=== PATIENT | male | born 1980 | race Caucasian/White ===

== ENCOUNTER 2018-10-06 11:13 | Emergency (ER) | payer BC ==
[2018-10-06 11:20] VITALS: BP 162/98; PULSE 102; RESP 18; TEMP 97.6
[2018-10-06] MEDS ORDERED: IBUPROFEN 600 MG TAB PO STA (11:33)
--- NOTE | 2018-10-06 12:02 | ED ---
General Adult HPI - General Chief complaint: Extremity Injury, Upper Stated complaint: lt wrist injury Time Seen by Provider: 10/06/18 11:26 Source: patient, RN notes reviewed, old records reviewed Mode of arrival: ambulatory Limitations: no limitations - History of Present Illness Initial comments: 38-year-old male with left wrist injury. Patient is left-hand dominant. Patient states was getting into his truck, slipped trapping his left hand and wrist between his car seat and center console. He had significant pain at site of injury. There was no head neck or back trauma. Patient has no other injuries noted. No chronic medical problems. Denies numbness or tingling in the hand. Pain is located to the left wrist. - Related Data Previous Rx's Medication Instructions Recorded HYDROcodone/APAP 5-325MG [[place] 1 tab PO Q6HR PRN #12 tab 10/06/18 5-325] Ibuprofen [Motrin] 600 mg PO Q8HR PRN #24 tab 10/06/18 Allergies Allergy/AdvReac Type Severity Reaction Status Date / Time Penicillins Allergy Unknown Verified 10/06/18 12:11 Review of Systems ROS Statement: Those systems with pertinent positive or pertinent negative responses have been documented in the HPI. ROS Other: All systems not noted in ROS Statement are negative. Past Medical History Past Medical History: No Reported History History of Any Multi-Drug Resistant Organisms: None Reported Past Surgical History: No Surgical Hx Reported Past Psychological History: No Psychological Hx Reported Smoking Status: Current every day smoker Past Alcohol Use History: Daily Past Drug Use History: None Reported General Exam Limitations: no limitations General appearance: alert, in no apparent distress Head exam: Present: atraumatic, normocephalic Eye exam: Present: normal appearance, PERRL ENT exam: Present: normal exam Neck exam: Present: normal inspection. Absent: tenderness Respiratory exam: Present: normal lung sounds bilaterally. Absent: respiratory distress Cardiovascular Exam: Present: regular rate, normal rhythm GI/Abdominal exam: Present: soft. Absent: distended, tenderness Extremities exam: Present: other (Left upper shoulder, normal range of motion at the shoulder, normal range of motion at the elbow, no bony tenderness noted until the distal left forearm. Tenderness along both the radius and the ulna, there is soft tissue swelling and ecchymosis. Range of motion of the wrist limited secondary to pain. Patient has normal cap refill, 2+ radial pulse, sensation.) Course Vital Signs 10/06/18 11:17 Temperature 97.6 F Pulse Rate 102 H Respiratory 18 Rate Blood Pressure 162/98 O2 Sat by Pulse 99 Oximetry Procedures - Orthopedic Splinting/Casting Injury #1 Side: left Upper Extremity Injury Location: wrist Upper Extremity Immobilizer: sugar tong splint Additional Comments: Patient neurovascularly intact both pre-and post-splinting Medical Decision Making - Medical Decision Making 38-year-old male left wrist injury. X-ray obtained, shows nondisplaced fracture of the distal radius with 1.5 mm articular step-off. Patient is neurovascularly intact. He is given Motrin and morphine for pain. He is placed in a sugar tong splint. He is given orthopedic follow-up. Disposition Clinical Impression: Distal radius fracture, left Disposition: HOME SELF-CARE Condition: Good Instructions (If sedation given, give patient instructions): Wrist Fracture in Adults (ED) Prescriptions: HYDROcodone/APAP 5-325MG [[place] 5-325] 1 tab PO Q6HR PRN #12 tab PRN Reason: Pain Ibuprofen [Motrin] 600 mg PO Q8HR PRN #24 tab PRN Reason: Pain Is patient prescribed a controlled substance at d/c from ED?: No Referrals: None,Stated [Primary Care Provider] - 1-2 days Indra Thomas DO [Medical Doctor] - 1-2 days Time of Disposition: 12:51
--- NOTE | 2018-10-06 12:26 | XR ---
EXAMINATION TYPE: XR wrist complete LT DATE OF EXAM: 10/06/2018 COMPARISON: NONE HISTORY: 38-year-old male slipped, fall, pain TECHNIQUE: 4 views FINDINGS: Prominent soft tissue swelling about the wrist and distal forearm. Subtle lucency seen along the ulna r-sided lip of the distal radial epiphysis. Lucency extends to the ulnar margin of the radiocarpal minnie int with step-off measuring 1.5 mm. This is seen on both AP and oblique views. The distal radioulnar joint and midcarpal compartment appear intact. IMPRESSION: Nondisplaced fracture along the ulnar margin of the distal radial epiphysis with intra-articular exte nsion into the radiocarpal joint resulting in 1.5 mm of articular surface step-off.
[2018-10-06] MEDS ORDERED: MORPHINE SULFATE 4 MG/ML SYRINGE IM STA (12:56)
== END 2018-10-06 13:09 | disposition home or self-care (01) ==
LOC: EC 11:13
DX: S52.502A Unspecified fracture of the lower end of left radius, initial encounter for closed fracture (principal); S60.212A Contusion of left wrist, initial encounter; F17.200 Nicotine dependence, unspecified, uncomplicated; Z88.0 Allergy status to penicillin; W00.0XXA Fall on same level due to ice and snow, initial encounter; Y93.89 Activity, other specified; Y92.89 Other specified places as the place of occurrence of the external cause
CPT/HCPCS: 29125; 96372; 99284

== ENCOUNTER → 2020-07-19 | Outpatient (CLI) | payer BC ==
--- NOTE | 2020-07-19 12:23 | P.STRESS ---
- Stress Test Note Stress Test Results/Findings: Exam Performed: stress test Exam Date: 07/19/20 Reason for Exam: CP/SOB Height: 5 ft 6 in Weight: 74.843 kg Protocol: JULITA Stage: 3 Duration of Exercise: 7:15 Resting Heart Rate: 117 Resting Blood Pressure: 170/98 Maximum Achieved Heart Rate: 176 Maximum Achieved Blood Pressure: 197/98 85% PMHR: 153 100% PMHR: 180 METS: 8.7 Technologist Comment: Stress Test Results/Findings: Baseline heart rate 117 beats a minute, Baseline blood pressure 171 98 mmHg Patient exercised on a Julita protocol for 7 minutes 15 seconds achieving a peak heart rate of 173 beats a minute. Elevated blood pressure at baseline Patient was short of breath. PVCs were noted There was no procedures for ischemia No sustained or nonsustained arrhythmias noted Impression Averaging exercise capacity without ECG ms for ischemia Occasional PVCs
== END | disposition home or self-care (01) ==
LOC: RADNMMAIN 10:54
PROVIDERS: ATTEND Family Medicine
DX: I49.9 Cardiac arrhythmia, unspecified (principal)
CPT/HCPCS: 93017

== ENCOUNTER 2020-10-29 21:10 | Emergency (ER) | payer BC ==
[2020-10-29 21:13] VITALS: RESP 18
--- NOTE | 2020-10-29 22:01 | XR ---
EXAMINATION TYPE: XR elbow complete LT DATE OF EXAM: 10/29/2020 CLINICAL HISTORY: Pain status post fall. TECHNIQUE: Frontal, lateral and oblique images of the left elbow are obtained. COMPARISON: None FINDINGS: There is no acute fracture/dislocation evident in the left elbow. No abnormal fat pad sig ns are seen. The overlying soft tissue appears unremarkable. IMPRESSION: There is no acute fracture or dislocation in the left elbow.
--- NOTE | 2020-10-29 22:11 | ED ---
Fall HPI - General Chief Complaint: Fall Stated Complaint: Fall,Lft elbow injury Time Seen by Provider: 10/29/20 21:21 Source: patient Mode of arrival: ambulatory - History of Present Illness Initial Comments: Ilya is a 40-year-old male presents the ER today for evaluation of left elbow pain. Patient reports that he lost his balance falling backwards onto his left elbow. He felt like it looked different from his right elbow so he came in with concern that the bones may be out of place. Patient reports he has full range of motion of the elbow with minimal pain but feels like it looks different when he flexes the joint. - Related Data Previous Rx's Medication Instructions Recorded HYDROcodone/APAP 5-325MG [[place] 1 tab PO Q6HR PRN #12 tab 10/06/18 5-325] Ibuprofen [Motrin] 600 mg PO Q8HR PRN #24 tab 10/06/18 Allergies Allergy/AdvReac Type Severity Reaction Status Date / Time Penicillins Allergy Unknown Verified 10/29/20 21:13 Review of Systems ROS Statement: Those systems with pertinent positive or pertinent negative responses have been documented in the HPI. ROS Other: All systems not noted in ROS Statement are negative. Past Medical History Past Medical History: No Reported History History of Any Multi-Drug Resistant Organisms: None Reported Past Surgical History: No Surgical Hx Reported Past Psychological History: No Psychological Hx Reported Smoking Status: Current every day smoker Past Alcohol Use History: Daily Past Drug Use History: None Reported General Exam - General Exam Comments Initial Comments: Physical Exam GENERAL: Patient is well-developed and well-nourished. Patient is nontoxic and well-hydrated and is in no distress. HENT: Normocephalic, Atraumatic. EYES: PERRL, EOMI PULMONARY: Unlabored respirations. CARDIOVASCULAR: RRR Warm and well perfused extremities ABDOMEN: Non-distended SKIN: No rashes or bruising : Deferred NEUROLOGIC: Alert and oriented Normal speech Normal gait MUSCULOSKELETAL: Moving all extremities with no apparent injury Full range of motion of the left elbow with no obvious deformity PSYCHIATRIC: No SI/HI Limitations: no limitations Course Vital Signs 10/29/20 10/29/20 21:12 22:28 Temperature 98.3 F 98.1 F Pulse Rate 100 97 Respiratory 18 18 Rate Blood Pressure 134/80 130/80 O2 Sat by Pulse 98 98 Oximetry Medical Decision Making - Medical Decision Making X-rays are negative patient was offered a sling but declined patient discharged home in stable condition Disposition Clinical Impression: Fall, Swelling of left elbow Disposition: HOME SELF-CARE Condition: Stable Instructions (If sedation given, give patient instructions): How to Use a Sling (ED) Is patient prescribed a controlled substance at d/c from ED?: No Referrals: Paris Alcala DO [Primary Care Provider] - 1-2 days
[2020-10-29 22:29] VITALS: BP 130/80; PULSE 97; TEMP 98.1
== END 2020-10-29 22:28 | disposition home or self-care (01) ==
LOC: EC 21:10
DX: M25.422 Effusion, left elbow (principal); F17.200 Nicotine dependence, unspecified, uncomplicated; Z88.0 Allergy status to penicillin; W01.0XXA Fall on same level from slipping, tripping and stumbling without subsequent striking against object, initial encounter
CPT/HCPCS: 99283

== ENCOUNTER 2022-12-21 11:34 | Inpatient (IN) | payer BC ==
[2022-12-21] MEDS ORDERED: PANTOPRAZOLE 40 MG/10 ML VIAL IVP STA (12:36)
[2022-12-21] MEDS ORDERED: ONDANSETRON 4 MG/2 ML VIAL IVP STA (12:36)
[2022-12-21] MEDS ORDERED: SODIUM CHLORIDE 0.9% 500 ML 500 ML IV STA (12:36)
[2022-12-21] MEDS ORDERED: HYDROmorphone 1 MG/ML 1 ML SYRINGE IVP STA (12:37)
--- NOTE | 2022-12-21 12:43 | ED ---
General Adult HPI - General Chief complaint: Abdominal Pain Stated complaint: Abdominal pain Time Seen by Provider: 12/21/22 11:55 Source: patient, RN notes reviewed Mode of arrival: ambulatory Limitations: no limitations - History of Present Illness Initial comments: Patient is a pleasant 42-year-old male presenting to the emergency department with concerns with abdominal pain. Onset of symptoms was 2 days ago. Onset while eating [employer]. Patient vomited just following this and felt okay for a short period of time. Patient has been having abdominal discomfort since shortly after that however. Discomfort is somewhat severe. Discomfort is m ostly left lower abdomen. Patient states it does radiate towards the midline. No back pain. No history of similar symptoms previously. Patient had one episode of mild diarrhea 2 days ago with no bowel movement since that time. Patient has continued nausea. No fever. - Related Data Home Medications Medication Instructions Recorded Confirmed ARIPiprazole [Abilify] 10 mg PO HS 12/21/22 12/21/22 Dextroamphetamine/Amphetamine 30 mg PO BID PRN 12/21/22 12/21/22 [Adderall] Escitalopram [Lexapro] 10 mg PO HS 12/21/22 12/21/22 Multivitamins, Thera [Multivitamin 1 tab PO DAILY 12/21/22 12/21/22 (formulary)] lisinopriL 40 mg PO DAILY 12/21/22 12/21/22 Allergies Allergy/AdvReac Type Severity Reaction Status Date / Time Penicillins Allergy Unknown Verified 12/21/22 12:55 Childhood Review of Systems ROS Statement: Those systems with pertinent positive or pertinent negative responses have been documented in the HPI. ROS Other: All systems not noted in ROS Statement are negative. Constitutional: Denies: fever Eyes: Denies: eye pain ENT: Denies: ear pain Respiratory: Denies: cough Cardiovascular: Denies: chest pain Endocrine: Denies: fatigue Gastrointestinal: Reports: as per HPI, abdominal pain, nausea Genitourinary: Denies: urgency, dysuria, frequency, hematuria Musculoskeletal: Denies: back pain Skin: Denies: rash Neurological: Denies: weakness Past Medical History Past Medical History: No Reported History History of Any Multi-Drug Resistant Organisms: None Reported Past Surgical History: No Surgical Hx Reported Past Psychological History: No Psychological Hx Reported Smoking Status: Former smoker Past Alcohol Use History: Occasional Past Drug Use History: None Reported General Exam Limitations: no limitations General appearance: alert, in no apparent distress Eye exam: Present: normal appearance Neck exam: Present: normal inspection Respiratory exam: Present: normal lung sounds bilaterally Cardiovascular Exam: Present: tachycardia Expanded Peripheral pulses: 2+: Dorsalis Pedis (R), Dorsalis Pedis (L) GI/Abdominal exam: Present: soft. Absent: tenderness Extremities exam: Present: normal inspection. Absent: pedal edema, calf tenderness Neurological exam: Present: alert Psychiatric exam: Present: normal affect, normal mood Skin exam: Present: normal color Course Vital Signs 12/21/22 12/21/22 12/21/22 11:35 13:00 13:30 Temperature 98.1 F Pulse Rate 125 H 111 H 105 H Respiratory 22 20 20 Rate Blood Pressure 143/89 138/83 129/92 O2 Sat by Pulse 100 100 100 Oximetry EKG Findings - EKG Results: EKG: interpreted by ERMD, normal axis, normal QRS, normal ST/T EKG shows: tachycardia, atrial fibrillation Medical Decision Making - Medical Decision Making Was pt. sent in by a medical professional or institution (, PA, [facility] [employer], urgent care, hospital, or fdc...) When possible be specific @ -No Did you speak to anyone other than the patient for history (EMS, parent, family, police, friend...)? What history was obtained from this source @ -Family is present and does later provide additional stores that patient does drink close to daily. Did you review nursing and triage notes (agree or disagree)? Why? @ -I reviewed and agree with nursing and triage notes Were old charts reviewed (outside hosp., previous admission, EMS record, old EKG, old radiological studies, urgent care reports/EKG's, fdc records)? Report findings @ -No old charts were reviewed Differential Diagnosis (chest pain, altered mental status, abdominal pain women, abdominal pain men, vaginal bleeding, weakness, fever, dyspnea, syncope, headach e, dizziness, GI bleed, back pain, seizure, CVA, palpatations, mental health)? @ -Differential Abdominal Pain Men: Appendicitis, cholecystitis, diverticulosis, ischemic bowel, pancreatitis, hepatitis, UTI, gastroenteritis, AAA, incarcerated hernia, bowel obstruction, constipation, inflammatory bowel, hepatitis, peptic ulcer disease, splenic infarction, perforated viscus, testicular torsion, this is not meant to be an all-inclusive list EKG interpreted by me (3pts min.). @ -As above X-rays interpreted by me (1pt min.). @ -None done CT interpreted by me (1pt min.). @ -Report reviewed U/S interpreted by me (1pt. min.). @ -None done What testing was considered but not performed or refused? (CT, X-rays, U/S, labs)? Why? @ -None What meds were considered but not given or refused? Why? @ -None Did you discuss the management of the patient with other professionals (professionals i.e. DrRadha, PA, [facility] [employer], lab, RT, psych nurse, health and social care teacher, engine boss, teacher, campus police officer, case finisher)? Give summary @ -Case was discussed with Dr. Oh, who will admit for Dr. Alcala. Was smoking cessation discussed for >3mins.? @ -No Was critical care preformed (if so, how long)? @ -30 minutes critical care time Were there social determinants of health that impacted care today? How? (Homelessness, low income, unemployed, alcoholism, drug addiction, transportation, low edu. Level, literacy, decrease access to med. care, halfway, rehab)? @ -No Was there de-escalation of care discussed even if they declined (Discuss DNR or withdrawal of care, Hospice)? DNR status @ -No What co-morbidities impacted this encounter? (DM, HTN, Smoking, COPD, CAD, Cancer, CVA, ARF, Chemo, Hep., AIDS, mental health diagnosis, sleep apnea, morbid obesity)? @ -None Was patient admitted / discharged? Hospital course, mention meds given and route, prescriptions, significant lab abnormalities, going to OR and other pertinent info. @ -Patient reevaluated and updated. Patient has mild improvement with pain medication. Patient will need IV fluids and pain control. In addition patient appears have new onset A. fib and will value from cardiac consult for this. Undiagnosed new problem with uncertain prognosis? @ -No Drug Therapy requiring intensive monitoring for toxicity (Heparin, Nitro, Insulin, Cardizem)? @ -Patient will be started on low-dose Cardizem drip and will need monitoring for this. Were any procedures done? @ -No Diagnosis/symptom? @ -Acute pancreatitis, new-onset A. fib with RVR Acute, or Chronic, or Acute on Chronic? @ -Acute, acute Uncomplicated (without systemic symptoms) or Complicated (systemic symptoms)? @ -default Side effects of treatment? @ -No Exacerbation, Progression, or Severe Exacerbation? @ -No Poses a threat to life or bodily function? How? (Chest pain, [place], ND, pneumonia, PE, COPD, DKA, ARF, appy, cholecystitis, CVA, Diverticulitis, Homicidal, Alex icidal, threat to staff... and all critical care pts) @ -No - Lab Data Result diagrams: 12/21/22 12:48 12/21/22 12:48 Lab Results 12/21/22 12/21/22 12/21/22 Range/Units 12:48 12:48 12:48 WBC 15.3 H (3.8-10.6) k/uL RBC 4.51 (4.30-5.90) m/uL Hgb 15.9 (13.0-17.5) gm/dL Hct 45.0 (39.0-53.0) % MCV 99.8 (80.0-100.0) fL MCH 35.3 H (25.0-35.0) pg MCHC 35.3 (31.0-37.0) g/dL RDW 12.0 (11.5-15.5) % Plt Count 252 (150-450) k/uL MPV 7.9 Neutrophils % 92 % Lymphocytes % 3 % Monocytes % 2 % Eosinophils % 2 % Basophils % 0 % Neutrophils # 14.1 H (1.3-7.7) k/uL Lymphocytes # 0.5 L (1.0-4.8) k/uL Monocytes # 0.4 (0-1.0) k/uL Eosinophils # 0.2 (0-0.7) k/uL Basophils # 0.0 (0-0.2) k/uL PT 9.9 (9.0-12.0) sec INR 0.9 (<1.2) APTT 23.2 (22.0-30.0) sec Sodium 134 L (137-145) mmol/L Potassium 5.2 H (3.5-5.1) mmol/L Chloride 96 L (98-107) mmol/L Carbon Dioxide 29 (22-30) mmol/L Anion Gap 9 mmol/L BUN 18 (9-20) mg/dL Creatinine 1.03 (0.66-1.25) mg/dL Est GFR (CKD-EPI)AfAm >90 (>60 ml/min/1.73 sqM) Est GFR (CKD-EPI)NonAf 89 (>60 ml/min/1.73 sqM) Glucose 147 H (74-99) mg/dL Calcium 9.0 (8.4-10.2) mg/dL Total Bilirubin 1.4 H (0.2-1.3) mg/dL AST 41 (17-59) U/L ALT 48 (4-49) U/L Alkaline Phosphatase 77 (38-126) U/L Total Protein 7.7 (6.3-8.2) g/dL Albumin 4.2 (3.5-5.0) g/dL Amylase 622 H* (30-110) U/L Lipase 6150 H (23-300) U/L Critical Care Time Critical Care Time: Yes Total Critical Care Time: 32 Disposition Clinical Impression: Pancreatitis, Atrial fibrillation with RVR Disposition: ADMITTED IP TO THIS HOSP Is patient prescribed a controlled substance at d/c from ED?: No Referrals: Paris Alcala DO [Primary Care Provider] - 1-2 days Time of Disposition: 14:30
[2022-12-21 13:11] LABS: Basophils % (A) 0 %; Eosinophils # (A) 0.2 k/uL (0-0.7); Eosinophils % (A) 2 %; HGB 15.9 gm/dL (13.0-17.5); Lymphocytes # (A) 0.5 k/uL (1.0-4.8); Lymphocytes % (A) 3 %; MCH 35.3 pg (25.0-35.0); MCHC 35.3 g/dL (31.0-37.0); MCV 99.8 fL (80.0-100.0); Mean Platelet Volume 7.9; Monocytes # (A) 0.4 k/uL (0-1.0); Monocytes % (A) 2 %; Neutrophils # (A) 14.1 k/uL (1.3-7.7); Neutrophils % (A) 92 %; Platelet Count 252 k/uL (150-450); RBC 4.51 m/uL (4.30-5.90); WBC 15.3 k/uL (3.8-10.6)
[2022-12-21 13:16] LABS: INR 0.9 (<1.2); Partial Thromboplastin Time 23.2 sec (22.0-30.0); Prothrombin Time 9.9 sec (9.0-12.0)
[2022-12-21 13:24] LABS: ALT 48 U/L (4-49); AST 41 U/L (17-59); African American GFR (CKD) >90 (>60 ml/min/1.73 sqM); Albumin 4.2 g/dL (3.5-5.0); Alkaline Phosphatase 77 U/L (38-126); Anion Gap 9 mmol/L; Blood Urea Nitrogen 18 mg/dL (9-20); Carbon Dioxide 29 mmol/L (22-30); Chloride 96 mmol/L (98-107); Glucose 147 mg/dL (74-99); Non-African American GFR(CKD) 89 (>60 ml/min/1.73 sqM); Potassium 5.2 mmol/L (3.5-5.1); Sodium 134 mmol/L (137-145); Total Bilirubin 1.4 mg/dL (0.2-1.3); Total Protein 7.7 g/dL (6.3-8.2)
--- NOTE | 2022-12-21 13:36 | CT ---
EXAMINATION TYPE: CT abdomen pelvis w con CT DLP: 1011.8 mGycm, Automated exposure control for dose reduction was used. DATE OF EXAM: 12/21/2022 1:20 PM COMPARISON: None CLINICAL INDICATION:Male, 42 years old with history of abdominal pain; LT SIDE ABDOMINAL PAIN. TECHNIQUE: Standard CT of the abdomen and pelvis following the administration of 100 cc of Isovue 3 00 IV contrast material. Coronal and sagittal reformats were performed. FINDINGS: LOWER CHEST: Unremarkable ABDOMEN LIVER: Diffusely hypoattenuating parenchyma. GALLBLADDER AND BILE DUCTS: Unremarkable. PANCREAS: Mildly edematous homogeneously enhancing appearance of the pancreas. No pancreatic ductal d ilatation or parenchymal calcifications. There is small amount of fluid surrounding the pancreas. The portal vein, splenic vein, and SMV are patent. No evidence for pseudoaneurysm. SPLEEN: Unremarkable. ADRENAL GLANDS: Unremarkable. KIDNEYS AND URETERS: No evidence of hydronephrosis or renal calculus. The kidneys enhance symmetrical ly. PELVIS BLADDER: Incompletely distended but grossly unremarkable. REPRODUCTIVE: Unremarkable. ABDOMEN & PELVIS STOMACH AND BOWEL: Stomach and duodenum are unremarkable. Hyperdense material is demonstrated within small bowel. Submucosal fat deposition within the descending colon. No evidence of bowel obstruction. PERITONEUM: No evidence of pneumoperitoneum. Small amount of free fluid is demonstrated throughout th e abdomen and pelvis. There are 2 loculated fluid collections abutting the gastric fundus measuring 4 .5 x 1.8 cm (series 201, 17) and 4.6 x 1.7 cm ((series 201, image 21). No rim enhancement or foci gas identified. There is fluid tracking along the bilateral paracolic gutters. VASCULATURE: No evidence of aortic aneurysm. MUSCULOSKELETAL: No acute osseous abnormalities LYMPH NODES: No gross evidence for lymphadenopathy. SOFT TISSUE/ABDOMINAL WALL: Unremarkable IMPRESSION: 1. Findings suggestive of acute interstitial edematous pancreatitis. No vascular complication. No ev idence for necrosis. Correlation with lipase levels is recommended. 2. 2 small loculated acute peripancreatic fluid collections abutting the gastric fundus without inter nal gas. Attention on follow-up examination. 3. Small amount of free fluid throughout the abdomen and pelvis.
[2022-12-21 13:43] LABS: Amylase 622 U/L (30-110)
[2022-12-21 13:59] LABS: Lipase 6150 U/L (23-300)
[2022-12-21] MEDS ORDERED: HYDROmorphone 0.5 MG/0.5 ML SYRINGE IVP PRN (14:33)
[2022-12-21] MEDS ORDERED: NALOXONE 0.4 MG/ML 1 ML VIAL IV PRN (14:33)
[2022-12-21] MEDS ORDERED: ONDANSETRON 4 MG/2 ML VIAL IVP PRN (14:33)
[2022-12-21] MEDS ORDERED: DILTIAZEM 125 MG in SODIUM CHLORIDE 0.9% 100 ML IV SCH (14:45)
[2022-12-21] MEDS: HYDROmorphone 1 MG/ML 1 ML SYRINGE IVP PRN ×3 (14:56→21:29)
[2022-12-21] MEDS: SODIUM CHLORIDE 0.9% 1,000 ML IV SCH (14:57)
[2022-12-21 15:13] LABS: Appearance,Urine Clear (Clear); Bacteria,Urine Rare /hpf; Bilirubin,Urine Negative (Negative); Blood,Urine Small (Negative); Color,Urine Yellow; Glucose,Urine (UA) Negative (Negative); Ketones,Urine Negative (Negative); Leukocyte Esterase,Urine Negative (Negative); Mucus,Urine Rare /hpf; Nitrite,Urine Negative (Negative); Protein,Urine 2+ (Negative); RBC,Urine 1 /hpf (0-5); Urobilinogen,Urine <2.0 mg/dL (<2.0); WBC,Urine <1 /hpf (0-5)
[2022-12-21 15:14] LABS: Specific Gravity,Urine >1.050 (1.001-1.035)
[2022-12-21 16:08] LABS: T4, Free (Free Thyroxine) 0.86 ng/dL (0.78-2.19)
[2022-12-21] MEDS: LORazepam 2 MG/ML INJ IV PRN ×2 (17:02→21:29)
[2022-12-21] MEDS: ENOXAPARIN 40 MG/0.4 ML SYRINGE SQ SCH (17:04)
[2022-12-21] MEDS: ARIPiprazole 10 MG TAB PO SCH (21:29)
[2022-12-21] MEDS: ESCITALOPRAM 10 MG TAB PO SCH (21:29)
[2022-12-22] MEDS: HYDROmorphone 1 MG/ML 1 ML SYRINGE IVP PRN ×7 (00:10→21:28)
[2022-12-22] MEDS: SODIUM CHLORIDE 0.9% 1,000 ML IV SCH ×4 (00:12→21:32)
[2022-12-22 08:18] LABS: Basophils % (A) 0 %; Eosinophils # (A) 0.1 k/uL (0-0.7); Eosinophils % (A) 1 %; HCT 41.5 % (39.0-53.0); Lymphocytes % (A) 6 %; MCH 34.4 pg (25.0-35.0); MCHC 33.7 g/dL (31.0-37.0); MCV 102.4 fL (80.0-100.0); Mean Platelet Volume 7.9; Monocytes # (A) 0.6 k/uL (0-1.0); Monocytes % (A) 3 %; Neutrophils # (A) 15.5 k/uL (1.3-7.7); Neutrophils % (A) 89 %; Platelet Count 282 k/uL (150-450); RBC 4.05 m/uL (4.30-5.90); RDW 11.8 % (11.5-15.5); WBC 17.3 k/uL (3.8-10.6)
[2022-12-22 08:45] LABS: Albumin 3.6 g/dL (3.5-5.0); Calcium 7.6 mg/dL (8.4-10.2); Magnesium 2.3 mg/dL (1.6-2.3); Potassium 4.6 mmol/L (3.5-5.1); Total Bilirubin 1.3 mg/dL (0.2-1.3); Total Protein 6.8 g/dL (6.3-8.2)
[2022-12-22] MEDS: ENOXAPARIN 40 MG/0.4 ML SYRINGE SQ SCH (08:53)
[2022-12-22] MEDS: PANTOPRAZOLE 40 MG/10 ML VIAL IV SCH (08:53)
[2022-12-22] MEDS: lisinopriL 20 MG TAB PO SCH (08:53)
--- NOTE | 2022-12-22 09:44 | P.CRDCN ---
History of Present Illness Consult date: 12/22/22 History of present illness: HISTORY OF PRESENT ILLNESS: This is a 42-year-old male with a past medical history significant for hypertension, former nicotine dependence, and frequent alcohol use. 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 We have been asked to see the patient in consultation for atrial fibrillation. Patient examined at the bedside. Patient states on Wednesday he ate [employer] and shortly afterwards he began to feel nauseated. He reports he started throwing up. His abdominal pain continued so he came to the ER yesterday for further evaluation. Patient denies chest pain or pressure. He reports diffuse abdominal pain and epigastric pain this morning. He has had no further episodes of vomiting. Patient was found to have pancreatitis. Patient states he drinks 5-6 beers on the weekends. The patient was thought to be in atrial fibrillation was started on IV Cardizem which has since been discontinued. EKG has been reviewed which does not reveal evidence of atrial fibrillation; it reveals sinus mechanism with PACs. * EKG reveals sinus mechanism with PACs * Laboratory data: WBC 17.3. Hemoglobin 14.0. Platelet count 282. Sodium 132. Potassium 4.6. Amylase 622. Lipase 6150. TSH 1.210. Troponin negative 1 * Current home cardiac medications include lisinopril 40 mg daily * Patient underwent stress testing in July 2020 which was negative for ischemia REVIEW OF SYSTEMS: At the time of my exam: CONSTITUTIONAL: Denies fever or chills. HEENT: Denies blurred vision, vision changes, or eye pain. Denies hemoptysis CARDIOVASCULAR: Denies chest pain. Denies orthopnea. Denies PND. Denies palpitations RESPIRATORY: Denies shortness of breath. GASTROINTESTINAL: Denies abdominal pain. Denies nausea or vomiting. HEMATOLOGIC: Denies bleeding disorders. GENITOURINARY: Denies any blood in urine. SKIN: Denies pruitis. Denies rash. PHYSICAL EXAM: VITAL SIGNS: Reviewed. GENERAL: Well-developed in no acute distress. HEENT: Head is normocephalic. Pupils are equal, round. Sclerae anicteric. Mucous membranes of the mouth are moist. Neck supple. No JVD or thyromegaly LUNGS: Respirations even and unlabored. Lungs essentially clear to auscultation bilaterally. HEART: Regular rate and rhythm. S1 and S2 heard. ABDOMEN: Soft. Nondistended. Nontender. EXTREMITIES: Normal range of motion. No clubbing or cyanosis. Peripheral pulses intact. No lower extremity edema NEUROLOGIC: Awake and alert. Oriented x 3. ASSESSMENT: Abdominal pain Pancreatitis Atrial fibrillation, ruled out, EKG reveals sinus mechanism with PACs Hypertension Former nicotine dependence Frequent alcohol use PLAN: No evidence of atrial fibrillation noted Resume home dose of lisinopril Obtain 2-D echo to assess cardiac structure and function GI consulted for further evaluation Recommend abstinence from alcohol Further recommendations pending patient's course Nurse practitioner note has been reviewed by physician. Signing provider agrees with the documented findings, assessment, and plan of care. Past Medical History Past Medical History: No Reported History History of Any Multi-Drug Resistant Organisms: None Reported Past Surgical History: No Surgical Hx Reported Additional Past Anesthesia/Blood Transfusion Reaction / Comment(s): never had. Past Psychological History: Anxiety, Depression Smoking Status: Former smoker Past Alcohol Use History: Occasional Past Drug Use History: None Reported Medications and Allergies Home Medications Medication Instructions Recorded Confirmed Type ARIPiprazole [Abilify] 10 mg PO HS 12/21/22 12/21/22 History Dextroamphetamine/Amphetamine 30 mg PO BID PRN 12/21/22 12/21/22 History [Adderall] Escitalopram [Lexapro] 10 mg PO HS 12/21/22 12/21/22 History Multivitamins, Thera [Multivitamin 1 tab PO DAILY 12/21/22 12/21/22 History (formulary)] lisinopriL 40 mg PO DAILY 12/21/22 12/21/22 History Allergies Allergy/AdvReac Type Severity Reaction Status Date / Time Penicillins Allergy Unknown Verified 12/21/22 12:55 Childhood Physical Exam Vitals: Vital Signs Temp Pulse Pulse Resp BP BP Pulse Ox 12/22/22 04:00 98.3 F 67 18 143/91 96 12/22/22 00:00 98.7 F 114 H 18 128/88 93 L 12/21/22 21:14 99.1 F 109 H 18 156/82 98 12/21/22 19:00 110 H 20 138/97 98 12/21/22 17:00 111 H 20 156/94 98 12/21/22 16:00 105 H 20 117/79 99 12/21/22 14:30 109 H 20 137/91 100 12/21/22 13:30 105 H 20 129/92 100 12/21/22 13:00 111 H 20 138/83 100 12/21/22 11:35 98.1 F 125 H 22 143/89 100 Intake and Output 12/21/22 12/22/22 12/22/22 22:59 06:59 14:59 Other: Voiding Method Toilet Toilet # Voids 2 Weight 73.936 kg Results 12/22/22 07:36 12/22/22 07:36 Cardiac Enzymes 12/21/22 12/21/22 Range/Units 12:48 15:24 AST 41 (17-59) U/L Troponin I <0.012 (0.000-0.034) ng/mL Coagulation 12/21/22 Range/Units 12:48 PT 9.9 (9.0-12.0) sec APTT 23.2 (22.0-30.0) sec CBC 12/21/22 Range/Units 12:48 WBC 15.3 H (3.8-10.6) k/uL RBC 4.51 (4.30-5.90) m/uL Hgb 15.9 (13.0-17.5) gm/dL Hct 45.0 (39.0-53.0) % Plt Count 252 (150-450) k/uL Comprehensive Metabolic Panel 12/21/22 Range/Units 12:48 Sodium 134 L (137-145) mmol/L Potassium 5.2 H (3.5-5.1) mmol/L Chloride 96 L (98-107) mmol/L Carbon Dioxide 29 (22-30) mmol/L BUN 18 (9-20) mg/dL Creatinine 1.03 (0.66-1.25) mg/dL Glucose 147 H (74-99) mg/dL Calcium 9.0 (8.4-10.2) mg/dL AST 41 (17-59) U/L ALT 48 (4-49) U/L Alkaline Phosphatase 77 (38-126) U/L Total Protein 7.7 (6.3-8.2) g/dL Albumin 4.2 (3.5-5.0) g/dL Current Medications Generic Name Dose Route Start Last Admin Trade Name Freq PRN Reason Stop Dose Admin Aripiprazole 10 mg 12/21/22 21:00 12/21/22 21:29 Aripiprazole 10 Mg Tab PO 10 mg HS GLEN Administration Enoxaparin Sodium 40 mg 12/21/22 15:30 12/21/22 17:04 Enoxaparin 40 Mg/0.4 Ml Syringe SQ 40 mg DAILY GLEN Administration Escitalopram Oxalate 10 mg 12/21/22 21:00 12/21/22 21:29 Escitalopram 10 Mg Tab PO 10 mg HS GLEN Administration Hydromorphone HCl 0.5 mg 12/21/22 14:33 Hydromorphone 0.5 Mg/0.5 Ml Syringe IVP Q3HR PRN Moderate Pain (Scale 4 to 6) Hydromorphone HCl 1 mg 12/21/22 14:33 12/22/22 04:57 Hydromorphone 1 Mg/Ml 1 Ml Syringe IVP 1 mg Q3HR PRN Administration Severe Pain (Scale 7 to 10) Diltiazem HCl 125 mg/ Sodium 125 mls @ 5 mls/hr 12/21/22 14:45 12/21/22 15:01 Chloride IV 5 mg/hr .Q24H GLEN 5 mls/hr Administration 5 MG/HR Sodium Chloride 1,000 mls @ 130 mls/hr 12/21/22 14:45 12/22/22 00:12 Saline 0.9% IV 130 mls/hr .Q7H42M GLEN Administration Lorazepam 1 mg 12/21/22 15:51 12/21/22 21:29 Lorazepam 2 Mg/Ml Inj IV 1 mg Q4HR PRN Administration Anxiety Naloxone HCl 0.2 mg 12/21/22 14:33 Naloxone 0.4 Mg/Ml 1 Ml Vial IV Q2M PRN Opioid Reversal Ondansetron HCl 4 mg 12/21/22 14:33 Ondansetron 4 Mg/2 Ml Vial IVP Q8HR PRN Nausea And Vomiting Pantoprazole Sodium 40 mg 12/22/22 09:00 Pantoprazole 40 Mg/10 Ml Vial IV DAILY GLEN Intake and Output 12/21/22 12/22/22 12/22/22 22:59 06:59 14:59 Other: Voiding Method Toilet Toilet # Voids 2 Weight 73.936 kg 12/21/22 12:48 12/21/22 12:48
--- NOTE | 2022-12-22 13:08 | P.CONS ---
History of Present Illness - Reason for Consult Consult date: 12/22/22 Acute pancreatitis Requesting physician: Elfego Aanya - Chief Complaint Abdominal pain - History of Present Illness Patient presented to the emergency department yesterday afternoon with complaints of epigastric and right upper quadrant pain radiating into his back. States pain started about 2 days prior to him coming to the emergency department and occurred following eating conical bowel for which he vomited and then started having pain. Patient was noted to have elevated amylase and lipase on admission was 622 and 6150 respectively. He underwent a CT of the abdomen and pelvis showing acute pancreatitis. Patient states he is a heavy drinker on the weekends he denies drinking during the week. Denies previous history of pancreatitis or family history of pancreatitis. Denies any new medications or supplements. Denies any history of high cholesterol. It was also noted mild elevation in his total bilirubin 1.4 on admission. Amylase and lipase are trending down. Patient states he still has significant pain, does get some relief with IV pain medication but not lasting. He denies any nausea or vomiting. Patient was also noted to be bradycardic on admission and cardiology was consulted. With contrast Workup Labs WBC 17, hemoglobin 14 hematocrit 41 platelet count 282,000 INR 0.9 sodium 132 potassium 4.6 BUN 15 creatinine 1.1 total bilirubin 1.3 AST 43 ALT 35 alkaline phosphatase 76, amylase [address] abdomen and pelvis with contrast reported findings suggestive of acute interstitial edematous pancreatitis. No vascular complication. No evidence for necrosis. Correlation with lipase levels recommended. 2 small loculated acute. Pancreatic fluid collections abutting the gastric fundus without internal gas. Attention on follow-up examination. Small amount of free fluid throughout the abdomen and pelvis Review of Systems REVIEW OF SYSTEMS: CARDIOPULMONARY: No chest pain or shortness of breath. Gastrointestinal: Epigastric and right upper quadrant pain. No nausea or vomiting. No hematemesis, coffee-ground emesis. No rectal bleeding, or melena. GENITOURINARY: No dysuria or hematuria. MUSCULOSKELETAL: Reports normal range of motion. SKIN: No rashes. No jaundice. ENDOCRINE: No chills, fevers. No excessive weight gain or loss. No polydipsia or polyuria. PSYCHIATRIC: Unremarkable. NEUROLOGY: No change in mental status. Denies dizziness, headache. ENT: Vision unremarkable. CONSTITUTIONAL: No recent weight loss. No fever, chills, night sweats. Past Medical History Past Medical History: No Reported History History of Any Multi-Drug Resistant Organisms: None Reported Past Surgical History: No Surgical Hx Reported Additional Past Anesthesia/Blood Transfusion Reaction / Comm: never had. Past Psychological History: Anxiety, Depression Smoking Status: Former smoker Past Alcohol Use History: Occasional Past Drug Use History: None Reported Medications and Allergies Home Medications Medication Instructions Recorded Confirmed Type ARIPiprazole [Abilify] 10 mg PO HS 12/21/22 12/21/22 History Dextroamphetamine/Amphetamine 30 mg PO BID PRN 12/21/22 12/21/22 History [Adderall] Escitalopram [Lexapro] 10 mg PO HS 12/21/22 12/21/22 History Multivitamins, Thera [Multivitamin 1 tab PO DAILY 12/21/22 12/21/22 History (formulary)] lisinopriL 40 mg PO DAILY 12/21/22 12/21/22 History Allergies Allergy/AdvReac Type Severity Reaction Status Date / Time Penicillins Allergy Unknown Verified 12/21/22 12:55 Childhood Physical Exam Vitals: Vital Signs Temp Pulse Pulse Resp BP BP BP 12/22/22 11:47 98.4 F 104 H 20 139/80 12/22/22 08:49 98.3 F 106 H 18 135/80 12/22/22 04:00 98.3 F 67 18 143/91 12/22/22 00:00 98.7 F 114 H 18 128/88 12/21/22 21:14 99.1 F 109 H 18 156/82 12/21/22 19:00 110 H 20 138/97 12/21/22 17:00 111 H 20 156/94 12/21/22 16:00 105 H 20 117/79 12/21/22 14:30 109 H 20 137/91 12/21/22 13:30 105 H 20 129/92 12/21/22 13:00 111 H 20 138/83 Pulse Ox 12/22/22 11:47 94 L 12/22/22 08:49 95 12/22/22 04:00 96 12/22/22 00:00 93 L 12/21/22 21:14 98 12/21/22 19:00 98 12/21/22 17:00 98 12/21/22 16:00 99 12/21/22 14:30 100 12/21/22 13:30 100 12/21/22 13:00 100 Intake and Output 12/21/22 12/22/22 12/22/22 22:59 06:59 14:59 Intake Total 240 Balance 240 Intake: Oral 240 Other: Voiding Method Toilet Toilet Toilet # Voids 2 Weight 73.936 kg General appearance: The patient is alert, oriented, appears in no acute distress. HET: Head is normocephalic and atraumatic. Conjunctiva pink. Sclera anicteric. Neck: Supple without lymphadenopathy. Abdomen: Soft, right upper quadrant and epigastric tenderness, nondistended with bowel sounds. No guarding or rigidity. Extremities: Normal skin color and turgor. No pedal edema Skin: No rashes, no jaundice Neurological: No focal deficits. Alert and oriented. Results CBC & Chem 7: 12/22/22 07:36 12/22/22 07:36 Labs: Abnormal Lab Results - Last 24 Hours (Table) 12/21/22 12/21/22 12/21/22 Range/Units 12:48 12:48 12:48 WBC 15.3 H (3.8-10.6) k/uL RBC (4.30-5.90) m/uL MCV (80.0-100.0) fL MCH 35.3 H (25.0-35.0) pg Neutrophils # 14.1 H (1.3-7.7) k/uL Lymphocytes # 0.5 L (1.0-4.8) k/uL Sodium 134 L (137-145) mmol/L Potassium 5.2 H (3.5-5.1) mmol/L Chloride 96 L (98-107) mmol/L Glucose 147 H (74-99) mg/dL Calcium (8.4-10.2) mg/dL Total Bilirubin 1.4 H (0.2-1.3) mg/dL Amylase 622 H* (30-110) U/L Lipase 6150 H (23-300) U/L Ur Specific [place] >1.050 H (1.001-1.035) Urine Protein 2+ H (Negative) Urine Blood Small H (Negative) Urine Bacteria Rare H (None) /hpf Urine Mucus Rare H (None) /hpf 04/18/23 04/18/23 Range/Units 07:36 07:36 WBC 17.3 H (3.8-10.6) k/uL RBC 4.05 L (4.30-5.90) m/uL MCV 102.4 H (80.0-100.0) fL MCH (25.0-35.0) pg Neutrophils # 15.5 H (1.3-7.7) k/uL Lymphocytes # (1.0-4.8) k/uL Sodium 132 L (137-145) mmol/L Potassium (3.5-5.1) mmol/L Chloride (98-107) mmol/L Glucose 117 H (74-99) mg/dL Calcium 7.6 L (8.4-10.2) mg/dL Total Bilirubin (0.2-1.3) mg/dL Amylase 319 H* (30-110) U/L Lipase 2314 H (23-300) U/L Ur Specific [place] (1.001-1.035) Urine Protein (Negative) Urine Blood (Negative) Urine Bacteria (None) /hpf Urine Mucus (None) /hpf Assessment and Plan (1) Pancreatitis Narrative/Plan: 42-year-old who presented to the emergency department with acute epigastric and right upper quadrant pain with elevated amylase and lipase consistent with pancreatitis. CT abdomen and pelvis does show acute edematous uncomplicated pancreatitis with 2 small loculated acute peripancreatic fluid collections. No previous history of pancreatitis, no new medications, does admit to drinking heavily every weekend, however denies weekday alcohol use. Likely dealing with alcoholic pancreatitis however need to consider gallbladder and triglycerides. Will order ultrasound of gallbladder as well as triglyceride level. Continue fluids, pain medication, and keep nothing by mouth Current Visit: Yes Status: Acute Code(s): K85.90 - ACUTE PANCREATITIS WITHOUT NECROSIS OR INFECTION, UNSP SNOMED Code(s): 66381572 Plan: 1. Continue symptomatic and supportive care 2. Protonix 40 mg IV daily GI prophylaxis 3. Zofran for nausea as needed 4. Increase fluids to 150 mL per hour 5. Down grade clear liquid diet to nothing by mouth with ice chips due to patient's continued pain 6. Gallbladder ultrasound ordered 7. Repeat CBC, CMP, lipase tomorrow 8. Triglycerides, AMA, IgG4 ordered Thank you for this consultation, we will continue to follow. Dr. Isaac Garza I agree with the dictator's note, documented as a scribe by Destiny Siddiqi.
--- NOTE | 2022-12-22 14:34 | US ---
EXAMINATION TYPE: US gallbladder DATE OF EXAM: 12/22/2022 COMPARISON: CT abdomen and pelvis December 21, 2022 CLINICAL INDICATION: Male, 42 years old with history of pancreatitis; Pain. TECHNIQUE: Multiple sonographic images of the right upper quadrant are obtained. FINDINGS: EXAM MEASUREMENTS: Liver Length: 18.4 cm Gallbladder Wall: 0.1 cm Right Kidney: 11.0 x 4.9 x 5.5 cm Pancreas: Tail obscured by overlying bowel gas. Limited visualization of head and body. Liver: Enlarged in size. Coarse. Trace amount of fluid seen adjacent to liver. Gallbladder: Mobile single stone = 1.2 cm Evidence for sonographic Wise's sign: neg CBD: Obscured by overlying bowel gas Right Kidney: No hydronephrosis or masses seen Visualized pancreas is slightly prominent and heterogeneous in appearance, inflammatory changes gala r seen on recent CT. Visualized liver heterogeneously hyperechoic system with fatty infiltrative hepa tocellular disease. Liver size mildly enlarged. Trace adjacent ascites. Single intraluminal gallstone in gallbladder. No abnormal wall thickening or adjacent ascites. Sonographic Wise sign negative. N o right-sided hydronephrosis. IMPRESSION: Suboptimal study. Known pancreatitis seen better on recent CT versus today's ultrasound.
--- NOTE | 2022-12-22 17:07 | CA ---
Transthoracic Echo Report Name: Larry Castro Age: 42 Gender: M : 1980 Exam Date: 12/22/2022 14:00 Exam Location: [facility] Ht (in): 67 Wt (lb): 163 Ordering Physician: Marilyn Hankins Attending/Referring Phys: [id number], Nhi Senior Energy Analyst Elvin Rosario RDCS Procedure CPT: Indications: LV function Cardiac Hx: Technical Quality: Fair Contrast 1: Total Dose (mL): Contrast 2: Total Dose (mL): MEASUREMENTS (Male / Female) Normal Values 2D ECHO LV Diastolic Diameter PLAX 4.8 cm 4.2 - 5.9 / 3.9 - 5.3 cm LV Systolic Diameter PLAX 3.4 cm LV Fractional Shortening PLAX 28.6 % IVS Diastolic Thickness 1.2 cm 0.6 - 1.0 / 0.6 - 0.9 cm IVS Systolic Thickness 1.3 cm LVPW Diastolic Thickness 0.9 cm 0.6 - 1.0 / 0.6 - 0.9 cm LVPW Systolic Thickness 1.7 cm LV Relative Wall Thickness 0.4 LVOT Diameter 2.0 cm LA Systolic Diameter LX 2.8 cm 3.0 - 4.0 / 2.7 - 3.8 cm LV Diastolic Volume MOD BP 92.8 cm??? 67 - 155 / 56 - 104 cm??? LV Systolic Volume MOD BP 29.6 cm??? 22 - 58 / 19 - 49 cm??? LV Ejection Fraction MOD BP 68.1 % >= 55 % LV Stroke Volume MOD BP 63.2 cm??? LV Diastolic Volume MOD 4C 69.0 cm??? LV Systolic Volume MOD 4C 15.7 cm??? LV Ejection Fraction MOD 4C 77.3 % LV Stroke Volume MOD 4C 53.4 cm??? LV Diastolic Length 4C 7.6 cm LV Systolic Length 4C 5.5 cm LV Diastolic Volume MOD 2C 111.7 cm??? LV Systolic Volume MOD 2C 43.0 cm??? LV Ejection Fraction MOD 2C 61.5 % LV Stroke Volume MOD 2C 68.7 cm??? LV Diastolic Length 2C 8.5 cm LV Systolic Length 2C 7.2 cm M-MODE Aortic Root Diameter MM 3.4 cm LA Systolic Diameter MM 3.5 cm LA Ao Ratio MM 1.0 MV E Point Septal Separation 1.1 cm AV Cusp Separation MM 1.7 cm DOPPLER AV Peak Velocity 145.6 cm/s AV Peak Gradient 8.5 mmHg MV Deceleration [place] 279.2 cm/s??? Mitral E Point Velocity 43.9 cm/s Mitral A Point Velocity 74.0 cm/s Mitral E to A Ratio 0.6 MV Deceleration Time 157.2 ms MV E' Velocity 9.8 cm/s Mitral E to MV E' Ratio 4.5 TR Peak Velocity 178.4 cm/s TR Peak Gradient 12.7 mmHg Right Ventricular Systolic Press 17.7 mmHg PV Peak Velocity 175.8 cm/s PV Peak Gradient 12.4 mmHg FINDINGS Left Ventricle Left ventricular ejection fraction is estimated at 60 %. Grade 1 diastolic dysfunction. Hyperdynamic left ventricular systolic function. Right Ventricle Normal right ventricular size and function. Right Atrium Normal right atrial size. Left Atrium Normal left atrial size. Mitral Valve Trace mitral regurgitation. Aortic Valve Trileaflet aortic valve. Tricuspid Valve Mild tricuspid regurgitation. Pulmonic Valve Structurally normal pulmonic valve. Pericardium Normal pericardium. No pericardial effusion. Aorta Mild aortic dilatation at the level of the sinuses of valsalva (root). CONCLUSIONS Normal LV systolic function Previewed by: Dr. Nayan Garza MD (Electronically Signed) Final Date: 22 December 2022 17:07
[2022-12-22] MEDS: ARIPiprazole 10 MG TAB PO SCH (20:09)
[2022-12-22] MEDS: ESCITALOPRAM 10 MG TAB PO SCH (20:09)
[2022-12-23] MEDS: HYDROmorphone 1 MG/ML 1 ML SYRINGE IVP PRN ×3 (00:34→06:20)
[2022-12-23 04:17] VITALS: TEMP 98
[2022-12-23] MEDS: SODIUM CHLORIDE 0.9% 1,000 ML IV SCH ×2 (04:54→11:43)
[2022-12-23] MEDS ORDERED: HYDROcodone/APAP 10-325MG 1 EACH TAB PO PRN (08:56)
[2022-12-23] MEDS: lisinopriL 20 MG TAB PO SCH (09:10)
[2022-12-23] MEDS: PANTOPRAZOLE 40 MG/10 ML VIAL IV SCH (09:10)
[2022-12-23] MEDS: ENOXAPARIN 40 MG/0.4 ML SYRINGE SQ SCH (09:11)
[2022-12-23 09:54] LABS: HCT 32.9 % (39.0-53.0); HGB 11.2 gm/dL (13.0-17.5); MCH 35.4 pg (25.0-35.0); MCV 104.3 fL (80.0-100.0); Macrocytosis Slight; Mean Platelet Volume 8.1; Platelet Count 203 k/uL (150-450); RBC 3.15 m/uL (4.30-5.90); RDW 11.7 % (11.5-15.5); WBC 11.6 k/uL (3.8-10.6)
[2022-12-23 10:16] LABS: ALT 34 U/L (4-49); AST 47 U/L (17-59); African American GFR (CKD) >90 (>60 ml/min/1.73 sqM); Alkaline Phosphatase 88 U/L (38-126); Anion Gap 8 mmol/L; Blood Urea Nitrogen 11 mg/dL (9-20); Calcium 7.3 mg/dL (8.4-10.2); Carbon Dioxide 25 mmol/L (22-30); Chloride 97 mmol/L (98-107); Glucose 93 mg/dL (74-99); Lipase 740 U/L (23-300); Non-African American GFR(CKD) >90 (>60 ml/min/1.73 sqM); Potassium 4.5 mmol/L (3.5-5.1); Sodium 130 mmol/L (137-145); Total Protein 5.8 g/dL (6.3-8.2)
--- NOTE | 2022-12-23 11:32 | P.HPIM ---
History of Present Illness H&P Date: 12/22/22 Chief Complaint: Abdominal pain This is a 42-year-old Past medical history of hypertension, former nicotine dependence and regular alcohol use admitted to the ER with abdominal pain. Reports he developed significant abdominal pain after emesis following consumption of taco's from [employer]. Denies daily alcohol use, reports 5-6 beers on the weekends; states the last time he consumed alcohol was on Wednesday-2 beers with his father. Amylase 622/ Lipase 6150 on admission , currently down to 319/2314. CT abdomen and pelvis reported findings suggestive of acute interstitial edematous pancreatitis. No vascular complication. No evidence for necrosis. Correlation with lipase levels recommended. 2 small loculated acute peripanic fluid collections abutting the gastric fundus without internal gas.Small amount of free fluid throughout the abdomen and pelvis.Denies chest pain, palpitations or shortness of breath.EKG reporting sinus rhythm with PACs. Troponins negative 1. Afebrile, T-max 99.1, WBC 17.3, hemoglobin 14, platelets 282, INR 0.9 sodium 132, potassium 4.6, bicarb 25, BUN 15, creatinine 1.17, magnesium 2.3, LFTs within normal limits. TSH 1.2/Free T4 0.86. UA negative. No further nausea and vomiting, positive abdominal pain. Review of Systems ROS Statement: Those systems with pertinent positive or pertinent negative responses have been documented in the HPI. ROS Other: All systems not noted in ROS Statement are negative. Past Medical History Past Medical History: No Reported History History of Any Multi-Drug Resistant Organisms: None Reported Past Surgical History: No Surgical Hx Reported Additional Past Anesthesia/Blood Transfusion Reaction / Comment(s): never had. Past Psychological History: Anxiety, Depression Smoking Status: Former smoker Past Alcohol Use History: Occasional Past Drug Use History: None Reported Medications and Allergies Home Medications Medication Instructions Recorded Confirmed Type ARIPiprazole [Abilify] 10 mg PO HS 12/21/22 12/21/22 History Dextroamphetamine/Amphetamine 30 mg PO BID PRN 12/21/22 12/21/22 History [Adderall] Escitalopram [Lexapro] 10 mg PO HS 12/21/22 12/21/22 History Multivitamins, Thera [Multivitamin 1 tab PO DAILY 12/21/22 12/21/22 History (formulary)] lisinopriL 40 mg PO DAILY 12/21/22 12/21/22 History Allergies Allergy/AdvReac Type Severity Reaction Status Date / Time Penicillins Allergy Unknown Verified 12/21/22 12:55 Childhood Physical Exam Vitals: Vital Signs Temp Pulse Pulse Resp BP BP BP 12/22/22 16:41 99.1 F 100 18 126/73 12/22/22 11:47 98.4 F 104 H 20 139/80 12/22/22 08:49 98.3 F 106 H 18 135/80 12/22/22 04:00 98.3 F 67 18 143/91 12/22/22 00:00 98.7 F 114 H 18 128/88 12/21/22 21:14 99.1 F 109 H 18 156/82 12/21/22 19:00 110 H 20 138/97 Pulse Ox 12/22/22 16:41 95 12/22/22 11:47 94 L 12/22/22 08:49 95 12/22/22 04:00 96 12/22/22 00:00 93 L 12/21/22 21:14 98 12/21/22 19:00 98 Intake and Output 12/22/22 12/22/22 12/22/22 06:59 14:59 22:59 Intake Total 240 Balance 240 Intake: Oral 240 Other: Voiding Method Toilet Toilet # Voids 2 PHYSICAL EXAM: VITAL SIGNS: [As above] GENERAL: Sitting up in bed, no acute distress. No jaundice. HEENT: Normocephalic ,Conjunctivae normal. eyes normal. NECK: Supple, No JVD. No thyroid enlargement. No LNs CARDIOVASCULAR: S1, S2 regular.mild tachycardia, No murmur RESPIRATION: Breath sounds diminished in the bases. No rhonchi or crackles. No bronchial breathing. ABDOMEN: Soft, distended, epigastric and right upper quadrant tenderness. No guarding. no masses palpable. No ascites, No hepatosplenomegaly.Bowel sounds heard. LEGS: No edema. no swelling PSYCHIATRY: Alert and oriented X3, mood and affect normal. NERVOUS SYSTEM: Cranial N 2-12 grossly normal. Moves all 4 limbs. Diffuse weakness No focal deficits. Strength and sensation grossly intact.. Skin: Warm and dry, no rash Results CBC & Chem 7: 12/23/22 08:49 12/23/22 08:49 Labs: Abnormal Lab Results - Last 24 Hours (Table) 12/22/22 12/22/22 Range/Units 07:36 07:36 WBC 17.3 H (3.8-10.6) k/uL RBC 4.05 L (4.30-5.90) m/uL MCV 102.4 H (80.0-100.0) fL Neutrophils # 15.5 H (1.3-7.7) k/uL Sodium 132 L (137-145) mmol/L Glucose 117 H (74-99) mg/dL Calcium 7.6 L (8.4-10.2) mg/dL Amylase 319 H* (30-110) U/L Lipase 2314 H (23-300) U/L Thrombosis Risk Factor Assmnt - Choose All That Apply Any of the Below Risk Factors Present?: Yes Each Factor Represents 1 point: Age 41-60 years Thrombosis Risk Factor Assessment Total Risk Factor Score: 1 Thrombosis Risk Factor Assessment Level: Low Risk Assessment and Plan Assessment: Acute Pancreatitis, suspect alcohol etiology, ruling out gallbladder. Alcohol use, denies daily drinking Hypertension Anxiety Depression Former nicotine dependence Plan: Continue on current medication regime ,monitoring and symptomatic treatment. IV fluid hydration. Pain management. PPI ordered for GI prophylaxis. Gallbladder ultrasound and 2-D echo pending. Close monitoring of lipase/CMP, CBC with repeat labs ordered for a.m. Alcohol abstinence reinforced. The impression and plan of care has been dictated as directed. : I performed a history and examination of this patient, discussed the same with the dictator. I agree with the dictator's note ,documented as a scribe. Any additional findings or plans will be noted.
--- NOTE | 2022-12-23 11:38 | P.PN ---
Subjective Progress Note Date: 12/23/22 HISTORY OF PRESENT ILLNESS: This is a 42-year-old male with a past medical history significant for hypertension, former nicotine dependence, and frequent alcohol use. 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 We have been asked to see the patient in consultation for atrial fibrillation. Patient examined at the bedside. Patient states on Wednesday he ate [employer] and shortly afterwards he began to feel nauseated. He reports he started throwing up. His abdominal pain continued so he came to the ER yesterday for further evaluation. Patient denies chest pain or pressure. He reports diffuse abdominal pain and epigastric pain this morning. He has had no further episodes of vomiting. Patient was found to have pancreatitis. Patient states he drinks 5-6 beers on the weekends. The patient was thought to be in atrial fibrillation was started on IV Cardizem which has since been discontinued. EKG has been reviewed which does not reveal evidence of atrial fibrillation; it reveals sinus mechanism with PACs. * EKG reveals sinus mechanism with PACs * Laboratory data: WBC 17.3. Hemoglobin 14.0. Platelet count 282. Sodium 132. Potassium 4.6. Amylase 622. Lipase 6150. TSH 1.210. Troponin negative 1 * Current home cardiac medications include lisinopril 40 mg daily * Patient underwent stress testing in July 2020 which was negative for ischemia 12/23/2022 Patient examined this might bedside. Patient denies chest pain or pressure. He denies shortness of breath. He continues to have abdominal pain. GI services is following. Telemetry reveals sinus mechanism with PVCs. No evidence of atrial fibrillation. Echocardiogram completed revealing ejection fraction 60%. PHYSICAL EXAM: VITAL SIGNS: Reviewed. GENERAL: Well-developed in no acute distress. HEENT: Head is normocephalic. Pupils are equal, round. Sclerae anicteric. Mucous membranes of the mouth are moist. Neck supple. No JVD or thyromegaly LUNGS: Respirations even and unlabored. Lungs essentially clear to auscultation bilaterally. HEART: Regular rate and rhythm. S1 and S2 heard. ABDOMEN: Soft. Nondistended. Nontender. EXTREMITIES: Normal range of motion. No clubbing or cyanosis. Peripheral pulses intact. No lower extremity edema NEUROLOGIC: Awake and alert. Oriented x 3. ASSESSMENT: Abdominal pain Pancreatitis Atrial fibrillation, ruled out, EKG reveals sinus mechanism with PACs Hypertension Former nicotine dependence Frequent alcohol use PLAN: Continue current cardiac medications GI following for pancreatitis Recommend abstinence from alcohol No further inpatient recommendations from a cardiac standpoint We will sign off. Please reconsult if needed. Nurse practitioner note has been reviewed by physician. Signing provider agrees with the documented findings, assessment, and plan of care. Objective - Vital Signs Vital signs: Vital Signs Temp 98.0 F 12/23/22 04:00 Pulse 102 H 12/23/22 08:00 Resp 17 12/23/22 08:00 BP 130/87 12/23/22 08:00 Pulse Ox 97 12/23/22 08:00 FiO2 Intake & Output 12/22/22 12/23/22 12/23/22 18:59 06:59 18:59 Intake Total 240 Balance 240 Weight 80.7 kg Intake: Oral 240 Other: Voiding Method Toilet Toilet Toilet # Voids 2 1 - Labs CBC & Chem 7: 12/23/22 08:49 12/23/22 08:49 Labs: Abnormal Lab Results - Last 24 Hours (Table) 12/23/22 12/23/22 Range/Units 08:49 08:49 WBC 11.6 H (3.8-10.6) k/uL RBC 3.15 L (4.30-5.90) m/uL Hgb 11.2 L (13.0-17.5) gm/dL Hct 32.9 L (39.0-53.0) % MCV 104.3 H (80.0-100.0) fL MCH 35.4 H (25.0-35.0) pg Sodium 130 L (137-145) mmol/L Chloride 97 L (98-107) mmol/L Calcium 7.3 L (8.4-10.2) mg/dL Total Protein 5.8 L (6.3-8.2) g/dL Albumin 3.0 L (3.5-5.0) g/dL Lipase 740 H (23-300) U/L
[2022-12-23 11:58] VITALS: BP 132/88; PULSE 92; RESP 18
--- NOTE | 2022-12-23 13:05 | P.PN ---
Subjective Progress Note Date: 12/23/22 Patient presented to the emergency department yesterday afternoon with complaints of epigastric and right upper quadrant pain radiating into his back. States pain started about 2 days prior to him coming to the emergency department and occurred following eating conical bowel for which he vomited and then started having pain. Patient was noted to have elevated amylase and lipase on admission was 622 and 6150 respectively. He underwent a CT of the abdomen and pelvis showing acute pancreatitis. Patient states he is a heavy drinker on the weekends he denies drinking during the week. Denies previous history of pancreatitis or family history of pancreatitis. Denies any new medications or supplements. Denies any history of high cholesterol. It was also noted mild elevation in his total bilirubin 1.4 on admission. Amylase and lipase are trending down. Patient states he still has significant pain, does get some relief with IV pain medication but not lasting. He denies any nausea or vomitin g. Patient was also noted to be bradycardic on admission and cardiology was consulted. With contrast Workup Labs WBC 17, hemoglobin 14 hematocrit 41 platelet count 282,000 INR 0.9 sodium 132 potassium 4.6 BUN 15 creatinine 1.1 total bilirubin 1.3 AST 43 ALT 35 alkaline phosphatase 76, amylase [address] abdomen and pelvis with contrast reported findings suggestive of acute interstitial edematous pancreatitis. No vascular complication. No evidence for necrosis. Correlation with lipase levels recommended. 2 small loculated acute. Pancreatic fluid collections abutting the gastric fundus without internal gas. Attention on follow-up examination. Small amount of free fluid throughout the abdomen and pelvis 12/23/2022: Patient seen and examined today as a follow-up. States his pain is still an 8 out of 10. In the epigastric and right upper quadrant region. He denies any nausea or vomiting. He has been nothing by mouth with ice chips. He has been using Dilaudid every couple hours, states that is not working well it doesn't last. He is requesting pain medication that would last longer. WBC 11.6 hemoglobin 11 platelet count 203,000 total bilirubin 1.0 AST 47 ALT 34 alkaline phosphatase 88 lipase 740 Triglycerides, INDIO and IgG4 pending Objective - Vital Signs Vital signs: Vital Signs Temp 98.0 F 12/23/22 04:00 Pulse 102 H 12/23/22 08:00 Resp 17 12/23/22 08:00 BP 130/87 12/23/22 08:00 Pulse Ox 97 12/23/22 08:00 FiO2 Intake & Output 12/22/22 12/23/22 12/23/22 18:59 06:59 18:59 Intake Total 240 Balance 240 Weight 80.7 kg Intake: Oral 240 Other: Voiding Method Toilet Toilet # Voids 2 1 - Exam General appearance: The patient is alert, oriented, appears in no acute distress. HET: Head is normocephalic and atraumatic. Conjunctiva pink. Sclera anicteric. Neck: Supple without lymphadenopathy. Abdomen: Soft, epigastric and right upper quadrant tenderness, nondistended with bowel sounds. No guarding or rigidity. Extremities: Normal skin color and turgor. No pedal edema Skin: No rashes, no jaundice Neurological: No focal deficits. Alert and oriented. - Labs CBC & Chem 7: 12/23/22 08:49 12/23/22 08:49 Assessment and Plan (1) Pancreatitis Narrative/Plan: 42-year-old who presented to the emergency department with acute epigastric and right upper quadrant pain with elevated amylase and lipase consistent with pancreatitis. CT abdomen and pelvis does show acute edematous uncomplicated pancreatitis with 2 small loculated acute peripancreatic fluid collections. No previous history of pancreatitis, no new medications, does admit to drinking heavily every weekend, however denies weekday alcohol use. Likely dealing with alcoholic pancreatitis however need to consider gallbladder and triglycerides. Will order ultrasound of gallbladder as well as triglyceride level. Continue fluids, pain medication, and keep nothing by mouth Abdominal pain improved since yesterday however still rates it 8 out of 10. Will advance to clear liquid diet. Continue pain management. Encourage ambulation. Current Visit: Yes Status: Acute Code(s): K85.90 - ACUTE PANCREATITIS WITHOUT NECROSIS OR INFECTION, UNSP SNOMED Code(s): 76386793 Plan: 1. Continue symptomatic and supportive care 2. Protonix 40 mg IV daily GI prophylaxis 3. Zofran for nausea as needed 4. Continue IV fluids to 150 mL per hour 5. Advance to clear liquid diet 6. Gallbladder ultrasound reviewed 7. Encourage ambulation 8. Triglycerides, AMA, IgG4 ordered and pending 9. Recommend transition to oral pain medications Anticipate discharge in the next 24-48 hours. Thank you for this consultation, we will continue to follow. Dr. Isaac Garza I agree with the dictator's note, documented as a scribe by Destiny Siddiqi.
--- NOTE | 2022-12-24 13:08 | P.DS ---
Providers Date of admission: 12/21/22 14:33 Expected date of discharge: 12/24/22 Attending physician: Dung Lorenzo MD Consults: 12/21/22 14:33 Consult Physician Routine Consulting Provider: Andria Garza Consult Reason/Comments: Acute pancreatitis Do you want consulting provider notified?: Yes Primary care physician: Paris Alcala Hospital Course: Final Diagnoses: Acute Pancreatitis, suspect alcohol etiology, ruling out gallbladder. Alcohol use, denies daily drinking Fatty liver Hypertension Anxiety Depression Former nicotine dependence Hospital course:This is a 42-year-old with past medical history of hypertension, former nicotine dependence and regular alcohol use admitted to the ER with abdominal pain. Reports he developed significant abdominal pain after emesis following consumption of taco's from [employer]. Denies daily alcohol use, reports 5-6 beers on the weekends; states the last time he consumed alcohol was on Wednesday-2 beers with his father. Amylase 622/ Lipase 6150 on admission , currently down to 319/2314. CT abdomen and pelvis reported findings suggestive of acute interstitial edematous pancreatitis. No vascular complication. No evidence for necrosis. Correlation with lipase levels recommended. 2 small loculated acute peripanic fluid collections abutting the gastric fundus without internal gas.Small amount of free fluid throughout the abdomen and pelvis.Denies chest pain, palpitations or shortness of breath.EKG reporting sinus rhythm with PACs. Troponins negative 1. Afebrile, T-max 99.1, WBC 17.3, hemoglobin 14, platelets 282, INR 0.9 sodium 132, potassium 4.6, bicarb 25, BUN 15, creatinine 1.17, magnesium 2.3, LFTs within normal limits. TSH 1.2/Free T4 0.86. UA negative. No further nausea and vomiting, positive abdominal pain. 12/23/2022 maintained on IV fluid hydration, Lipase decreased down to 740. Positive bowel movement during the night.Reporting right upper quadrant, epigastric pain, feels hungry. denies nausea, vomiting. States pain relief from Dilaudid not lastingmore than 2 hours-requesting longer-lasting pain medication. Diet recently advanced from ice chips to clear liquids.Afebrile, WBC 11.6. Hemoglobin 11.2, platelets 203, sodium 1:30, renal function stable. Total bili 1. Echo reporting normal LV function. Ultrasound of gallbladder reported single intraluminal gallstone in gallbladder, no abdominal wall thickening or adjacent ascites, sonographic Wise sign negative, no right-sided hydronephrosis. Fatty infiltrative hepatocellular disease. Insisting on discharge. Patient cleared for discharge by PCP. Patient will be discharged home today in a stable condition with guarded prognosis. Reinforced clear liquids, slowly advance to low fat, low protein, pending pain improves on clears. Follow-up with PCP in 3 days. The impression and plan of care has been dictated as directed. : I performed a history and examination of this patient, discussed the same with the dictator. I agree with the dictator's note ,documented as a scribe. Any additional findings or plans will be noted. Patient Condition at Discharge: Stable Plan - Discharge Summary Discharge Rx Participant: No New Discharge Prescriptions: New HYDROcodone/APAP 5-325MG [[place] 5-325] 1 tab PO Q6HR PRN 3 Days #12 tab PRN Reason: Pain Continue ARIPiprazole [Abilify] 10 mg PO HS Multivitamins, Thera [Multivitamin (formulary)] 1 tab PO DAILY lisinopriL 40 mg PO DAILY Escitalopram [Lexapro] 10 mg PO HS Dextroamphetamine/Amphetamine [Adderall] 30 mg PO BID PRN PRN Reason: adhd Discharge Medication List ARIPiprazole [Abilify] 10 mg PO HS 12/21/22 [History] Dextroamphetamine/Amphetamine [Adderall] 30 mg PO BID PRN 12/21/22 [History] Escitalopram [Lexapro] 10 mg PO HS 12/21/22 [History] Multivitamins, Thera [Multivitamin (formulary)] 1 tab PO DAILY 12/21/22 [History] lisinopriL 40 mg PO DAILY 12/21/22 [History] HYDROcodone/APAP 5-325MG [[place] 5-325] 1 tab PO Q6HR PRN 3 Days #12 tab 12/23/22 [Rx] Follow up Appointment(s)/Referral(s): Paris Alcala DO [Primary Care Provider] - 3 Days Activity/Diet/Wound Care/Special Instructions: clears, advance slowly to low fat, low protein, pending pain improves on clears. Discharge Disposition: HOME SELF-CARE
== END 2022-12-23 14:38 | disposition home or self-care (01) | DRG 440 ==
LOC: EC 11:34 → 3SCARD 14:33
PROVIDERS: ADMIT Family Medicine; ATTEND Family Medicine
DX: K85.90 Acute pancreatitis without necrosis or infection, unspecified (principal); I10 Essential (primary) hypertension; F32.A Depression, unspecified; F41.9 Anxiety disorder, unspecified; I48.91 Unspecified atrial fibrillation; I49.3 Ventricular premature depolarization; Z79.899 Other long term (current) drug therapy; Z88.0 Allergy status to penicillin
CPT/HCPCS: 36415; 74177; 76705; 80053; 81001; 82150; 82787; 83690; 83735; 84439; 84443; 84478; 84481; 84484; 85025; 85027; 85610; 85730; 86038; 93005; 93306; 96361; 96365; 96366; 96372; 96375; 96376; 99291